=== PATIENT | male | born 1990 | race Caucasian/White ===

== ENCOUNTER 2023-10-16 00:50 | Emergency (ER) | payer SELFPAY ==
[~2023-10-16] VITALS: Ht 177.8 cm; Wt 61.6 kg
[2023-10-16] MEDS ORDERED: LIDOCAINE 1%/EPI 1:100,000 inj. 10 ML multi-dose vial IJ ONE (01:15)
[2023-10-16] MEDS ORDERED: bacitracin 15gm ointment TP ONE (01:15)
[2023-10-16] MEDS ORDERED: TETanus/Pertussis (Acell)/Diphther VAC/PF (Tdap-Adult) 0.5ml syringe IMVAC ONE (01:15)
[2023-10-16] MEDS ORDERED: CLIN-214 PO (02:30)
[2023-10-16] MEDS ORDERED: clindamycin 150mg capsule PO ONE (02:30)
[2023-10-16 02:48] VITALS: BP 124/78; PULSE 72; RESP 16; TEMP 99; O2SAT 100
== END 2023-10-16 02:50 | disposition home or self-care (01) ==
LOC: ER 00:51
DX: L02.11 Cutaneous abscess of neck (principal); L03.221 Cellulitis of neck; Z88.0 Allergy status to penicillin; Z79.899 Other long term (current) drug therapy
CPT/HCPCS: 10060; 90471; 90715; 99283; A6449